=== PATIENT | female | born 1960 | race Caucasian/White ===

== ENCOUNTER 2019-03-26 20:20 | Inpatient (IN) | payer OTHER ==
[2019-03-26 21:12] VITALS: BMI 28.3
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
[2019-03-26] MEDS ORDERED: METHADONE HCL 10 MG TABLET (FOR DETOX USE ONLY) PO ONE (22:11)
[2019-03-26] MEDS ORDERED: cloNIDine HCL 0.1 MG TABLET PO PRN (22:11)
[2019-03-26] MEDS ORDERED: NALOXONE HCL 0.4 MG/ML VIAL IM PRN (22:11)
[2019-03-26] MEDS ORDERED: MAGNESIUM HYDROX 2400MG/30ML ORAL SUSPENSION 30 ML CUP PO PRN (22:22)
[2019-03-26] MEDS ORDERED: guaiFENesin 200 MG/10 ML 10 ML UNIT-DOSE CUPS PO PRN (22:22)
[2019-03-26] MEDS ORDERED: ONDANSETRON *ODT* 4 MG TABLET SL PRN (22:22)
[2019-03-26] MEDS ORDERED: ACETAMINOPHEN 325 MG TABLET (FP) PO PRN ×2 (22:22)
[2019-03-26] MEDS ORDERED: BISMUTH SUBSALICYLATE 524 MG/30 ML UD PO PRN (22:22)
[2019-03-26] MEDS ORDERED: MENTHOL/PHENOL 1 EACH UD MM PRN (22:22)
[2019-03-26] MEDS ORDERED: P-EPHED 60MG/TRIPROLIDI 2.5MG TABLET PO PRN (22:22)
[2019-03-26] MEDS ORDERED: MAGNESIUM CITRATE 300 ML BOTTLE PO PRN (22:22)
[2019-03-26] MEDS ORDERED: DICYCLOMINE HCL 10 MG CAPSULE PO PRN (22:22)
[2019-03-26] MEDS: MELATONIN 5 MG TABLETS PO PRN (23:20)
[2019-03-26] MEDS: hydrOXYzine PAMOATE 25 MG CAPSULE (FP) PO PRN (23:20)
[2019-03-27] MEDS: MELATONIN 5 MG TABLETS PO PRN ×2 (00:41→22:03)
[2019-03-27] MEDS: IBUPROFEN 400 MG TABLET (FP) PO PRN (00:41)
[2019-03-27] MEDS ORDERED: GABAPENTIN 300 MG CAPSULE (FP) PO SCH (06:00)
[2019-03-27] MEDS ORDERED: METHADONE HCL 5 MG TABLET (FOR DETOX USE ONLY) PO ONE (10:00)
[2019-03-27] MEDS ORDERED: RALTEGRAVIR POTASSIUM 400 MG TAB PO SCH (10:00)
[2019-03-27] MEDS ORDERED: RITONAVIR 100 MG TABLET PO SCH (10:00)
[2019-03-27] MEDS: ALBUTEROL SO4 8 GM HFA INHALER IH PRN ×2 (10:26→15:58)
[2019-03-27] MEDS: ASPIRIN 81 MG CHEWABLE TABLETS PO SCH (10:26)
[2019-03-27] MEDS: PRENATAL VITAMINS W/ FOLIC ACID TABLET (FP) PO SCH (10:27)
[2019-03-27 10:34] LABS: HEMATOCRIT 27.1 % (32.4-45.2); HEMOGLOBIN 8.1 GM/dL (10.7-15.3); MCH 21.9 pg (25.7-33.7); MEAN CELL VOLUME 73.1 fl (80-96); MEAN PLT VOLUME 8.7 fl (7.5-11.1); PLATELET COUNT 295 K/MM3 (134-434); RBC 3.71 M/mm3 (3.60-5.2); RDW 19.1 % (11.6-15.6); WHITE BLOOD COUNT 6.8 K/mm3 (4.0-10.0)
[2019-03-27] MEDS: MAG HYDROX/AL HYDROX/SIMETH 30 ML UNIT-DOSE CUP PO PRN ×2 (10:38→15:58)
[2019-03-27 10:44] LABS: ALBUMIN 3.3 g/dl (3.4-5.0); BILIRUBIN,TOTAL 0.2 mg/dL (0.2-1); CREATININE 1.1 mg/dL (0.55-1.3); POTASSIUM 3.5 mmol/L (3.5-5.1); TOT PROT 6.9 g/dl (6.4-8.2)
--- NOTE | 2019-03-27 11:51 | PN ---
BHS COWS - Scale Resting Pulse: 1= [place] 81-100 Sweatin= Chills/Flushing Restless Observation: 1= Difficult to Sit Still Pupil Size: 0= Normal to Room Light Bone or Joint Aches: 1= Mild Discomfort Runny Nose/ Eye Tearin= Nasal Congestion GI Upset > 30mins: 1= Stomach Cramp Tremor Observation of Outstretched Hands: 1= Tremor [place], Not Seen Yawning Observation: 1= 1-2x During Session Anxiety or Irritability: 0= None BHS Progress Note (SOAP) Subjective: Pt admitted yesterday for heroin detox. d/w pt MAT- to have further discussions with counselors. Pt would like something for sleep. Does not want neurotin- says this was stopped by PCP O: Vital Signs - 24 hr 03/26/19 03/26/19 03/27/19 20:57 23:49 03:37 Temperature 98.6 F 96.7 F L Pulse Rate 69 63 Respiratory 20 18 18 Rate Blood Pressure 130/72 142/64 03/27/19 03/27/19 06:43 09:15 Temperature 97.9 F 98.8 F Pulse Rate 57 L 58 L Respiratory 18 18 Rate Blood Pressure 103/60 107/63 Laboratory Tests 03/26/19 03/27/19 03/27/19 21:52 08:00 08:00 WBC 6.8 RBC 3.71 Hgb 8.1 L Hct 27.1 L MCV 73.1 L MCH 21.9 L MCHC 30.0 L RDW 19.1 H Plt Count 295 MPV 8.7 Sodium 144 Potassium 3.5 Chloride 107 Carbon Dioxide 29 Anion Gap 7 L BUN 15.0 Creatinine 1.1 Est GFR (CKD-EPI)AfAm 63.64 Est GFR (CKD-EPI)NonAf 54.91 Random Glucose 80 Calcium 9.0 Total Bilirubin 0.2 AST 41 H ALT 24 Alkaline Phosphatase 82 Total Protein 6.9 Albumin 3.3 L POC Urine HCG, Qual Negative anemia: low MCV and high RDW low GFR Low albumin a/p: continue detox will give iron tabs and B12 and needs f/u PCP MH consult in place for pt
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
[2019-03-27 12:35] LABS: EPI CELLS 4.4 /HPF (0-5/HPF); HYALINE CASTS 16 /lpf (0-8); PH,URINE 6.5 (5.0-8.0); URINE APPEARANCE CLOUDY; URINE BACTERIA 2.7 /hpf (NEGATIVE); URINE BILIRUBIN NEGATIVE (NEGATIVE); URINE COLOR YELLOW; URINE GLUCOSE (UA) NEGATIVE (NEGATIVE); URINE KETONE NEGATIVE (NEGATIVE); URINE LEUK ESTERASE NEGATIVE (NEGATIVE); URINE NITRITE NEGATIVE (NEGATIVE); URINE PROTEIN 2+ (NEGATIVE); URINE RBC 4 /hpf (0-4); URINE WBC 2 /hpf (0-5)
[2019-03-27 12:56] LABS: URINE CRYSTALS FEW /hpf
[2019-03-27] MEDS ORDERED: METHADONE HCL 10 MG TABLET (FOR DETOX USE ONLY) PO ONE (13:00)
[2019-03-27] MEDS: CYANOCOBALAMIN 1,000 MCG TABLET (FP) PO SCH (14:03)
[2019-03-27] MEDS: FERROUS SO4 325 MG TABLET (FP) PO SCH (16:46)
[2019-03-27] MEDS: ATORVASTATIN CA 10 MG TABLET (FP) PO SCH (22:01)
[2019-03-27] MEDS: THIAMINE HCL 100 MG TABLET (FP) PO SCH (22:01)
[2019-03-27] MEDS: METHOCARBAMOL 500 MG TABLET PO PRN (22:22)
[2019-03-28] MEDS: FERROUS SO4 325 MG TABLET (FP) PO SCH ×2 (07:28→18:21)
[2019-03-28] MEDS: IBUPROFEN 400 MG TABLET (FP) PO PRN (08:38)
[2019-03-28] MEDS ORDERED: METHADONE HCL 10 MG TABLET (FOR DETOX USE ONLY) PO ONE (10:00)
[2019-03-28] MEDS: PRENATAL VITAMINS W/ FOLIC ACID TABLET (FP) PO SCH (10:12)
[2019-03-28] MEDS: ASPIRIN 81 MG CHEWABLE TABLETS PO SCH (10:12)
[2019-03-28] MEDS: ALBUTEROL SO4 8 GM HFA INHALER IH PRN ×2 (10:12→22:36)
[2019-03-28] MEDS: CITALOPRAM HYDROBROMIDE 20 MG TABLET (FP) PO SCH (10:13)
[2019-03-28] MEDS: CYANOCOBALAMIN 1,000 MCG TABLET (FP) PO SCH (10:13)
[2019-03-28] MEDS: METHOCARBAMOL 500 MG TABLET PO PRN (10:13)
--- NOTE | 2019-03-28 12:39 | PN ---
BHS COWS - Scale Resting Pulse: 0= [place] 80 or Below Sweatin= Beads of Sweat on Face Restless Observation: 1= Difficult to Sit Still Pupil Size: 0= Normal to Room Light Bone or Joint Aches: 2= Severe Diffuse Aches Runny Nose/ Eye Tearin= None GI Upset > 30mins: 0= None Tremor Observation of Outstretched Hands: 0= None Yawning Observation: 1= 1-2x During Session Anxiety or Irritability: 2=Irritable/Anxious Goose Flesh Skin: 0=Smooth Skin COWS Score: 9 S Progress Note (SOAP) Subjective: c/o sweats, anxiety, and headache. Objective: 03/28/19 12:38 Vital Signs 03/28/19 03/28/19 06:45 09:29 Temperature 99.2 F 99.8 F H Pulse Rate 71 67 Respiratory 18 16 Rate Blood Pressure 135/69 115/56 L Laboratory Last Values WBC 6.8 K/mm3 (4.0-10.0) 03/27/19 08:00 RBC 3.71 M/mm3 (3.60-5.2) 03/27/19 08:00 Hgb 8.1 GM/dL (10.7-15.3) L 03/27/19 08:00 Hct 27.1 % (32.4-45.2) L 03/27/19 08:00 MCV 73.1 fl (80-96) L 03/27/19 08:00 MCH 21.9 pg (25.7-33.7) L 03/27/19 08:00 MCHC 30.0 g/dl (32.0-36.0) L 03/27/19 08:00 RDW 19.1 % (11.6-15.6) H 03/27/19 08:00 Plt Count 295 K/MM3 (134-434) 03/27/19 08:00 MPV 8.7 fl (7.5-11.1) 03/27/19 08:00 Sodium 144 mmol/L (136-145) 03/27/19 08:00 Potassium 3.5 mmol/L (3.5-5.1) 03/27/19 08:00 Chloride 107 mmol/L (98-107) 03/27/19 08:00 Carbon Dioxide 29 mmol/L (21-32) 03/27/19 08:00 Anion Gap 7 MMOL/L (8-16) L 03/27/19 08:00 BUN 15.0 mg/dL (7-18) 03/27/19 08:00 Creatinine 1.1 mg/dL (0.55-1.3) 03/27/19 08:00 Est GFR (CKD-EPI)AfAm 63.64 03/27/19 08:00 Est GFR (CKD-EPI)NonAf 54.91 03/27/19 08:00 Random Glucose 80 mg/dL (74-106) 03/27/19 08:00 Calcium 9.0 mg/dL (8.5-10.1) 03/27/19 08:00 Total Bilirubin 0.2 mg/dL (0.2-1) 03/27/19 08:00 AST 41 U/L (15-37) H 03/27/19 08:00 ALT 24 U/L (13-61) 03/27/19 08:00 Alkaline Phosphatase 82 U/L (45-117) 03/27/19 08:00 Total Protein 6.9 g/dl (6.4-8.2) 03/27/19 08:00 Albumin 3.3 g/dl (3.4-5.0) L 03/27/19 08:00 Urine Color Yellow 03/27/19 10:20 Urine Appearance Cloudy 03/27/19 10:20 Urine pH 6.5 (5.0-8.0) 03/27/19 10:20 Ur Specific [place] 1.029 (1.010-1.035) 03/27/19 10:20 Urine Protein 2+ (NEGATIVE) H 03/27/19 10:20 Urine Glucose (UA) Negative (NEGATIVE) 03/27/19 10:20 Urine Ketones Negative (NEGATIVE) 03/27/19 10:20 Urine Blood Negative (NEGATIVE) 03/27/19 10:20 Urine Nitrite Negative (NEGATIVE) 03/27/19 10:20 Urine Bilirubin Negative (NEGATIVE) 03/27/19 10:20 Urine Urobilinogen 1.0 mg/dL (0.2-1.0) 03/27/19 10:20 Ur Leukocyte Esterase Negative (NEGATIVE) 03/27/19 10:20 Urine WBC (Auto) 2 /hpf (0-5) 03/27/19 10:20 Urine RBC (Auto) 4 /hpf (0-4) 03/27/19 10:20 Urine Casts (Auto) 16 /lpf (0-8) 03/27/19 10:20 U Epithel Cells (Auto) 4.4 /HPF (0-5/HPF) 03/27/19 10:20 Urine Crystals (Auto) Few /hpf 03/27/19 10:20 Urine Bacteria (Auto) 2.7 /hpf (NEGATIVE) 03/27/19 10:20 POC Urine HCG, Qual Negative 03/26/19 21:52 RPR Titer Nonreactive (NONREACTIVE) 03/27/19 08:00 Labs noted. Assessment: 03/28/19 12:38 AOX3, in no respiratory distress. Full ROM, ambulating in the unit. Withdrawal symptoms. Plan: continue detox.
--- NOTE | 2019-03-28 14:37 | EKG ---
Test Reason : Blood Pressure : / mmHG Vent. Rate : 066 BPM Atrial Rate : 066 BPM P-R Int : 138 ms QRS Dur : 076 ms QT Int : 444 ms P-R-T Axes : 000 049 055 degrees QTc Int : 465 ms ECTOPIC ATRIAL RHYTHM ABNORMAL ECG NO PREVIOUS ECGS AVAILABLE Confirmed by CHELSEA ZAPIEN MD ([id number]) on 03/28/2019 2:37:23 PM Referred By: Confirmed By:CHELSEA ZAPIEN MD
[2019-03-28] MEDS: MAG HYDROX/AL HYDROX/SIMETH 30 ML UNIT-DOSE CUP PO PRN (16:58)
[2019-03-28] MEDS: THIAMINE HCL 100 MG TABLET (FP) PO SCH (22:36)
[2019-03-28] MEDS: ATORVASTATIN CA 10 MG TABLET (FP) PO SCH (22:36)
[2019-03-28] MEDS: MELATONIN 5 MG TABLETS PO PRN (22:36)
[2019-03-29] MEDS: FERROUS SO4 325 MG TABLET (FP) PO SCH ×2 (07:28→18:07)
[2019-03-29] MEDS ORDERED: METHADONE HCL 5 MG TABLET (FOR DETOX USE ONLY) PO SCH (10:00)
[2019-03-29] MEDS: ASPIRIN 81 MG CHEWABLE TABLETS PO SCH (10:52)
[2019-03-29] MEDS: CYANOCOBALAMIN 1,000 MCG TABLET (FP) PO SCH (10:53)
[2019-03-29] MEDS: IBUPROFEN 400 MG TABLET (FP) PO PRN ×2 (10:53→22:13)
[2019-03-29] MEDS: CITALOPRAM HYDROBROMIDE 20 MG TABLET (FP) PO SCH (10:53)
[2019-03-29] MEDS: PRENATAL VITAMINS W/ FOLIC ACID TABLET (FP) PO SCH (10:53)
[2019-03-29] MEDS: ALBUTEROL SO4 8 GM HFA INHALER IH PRN ×2 (10:54→22:12)
--- NOTE | 2019-03-29 13:15 | PN ---
BHS COWS - Scale Resting Pulse: 0= [place] 80 or Below Sweatin= Chills/Flushing Restless Observation: 0= Sits Still Pupil Size: 1= Pupils >than Normal Bone or Joint Aches: 1= Mild Discomfort Runny Nose/ Eye Tearin= None GI Upset > 30mins: 1= Stomach Cramp Tremor Observation of Outstretched Hands: 1= Tremor [place], Not Seen Yawning Observation: 0= None Anxiety or Irritability: 1=Feels Anxious/Irritable Goose Flesh Skin: 0=Smooth Skin COWS Score: 6 BHS Progress Note (SOAP) Subjective: 58 years old female admitted on 03/26/19 for opiate withdrawal sx management treating with methadone detox regimen ambulating with walker on hallway steady gait c/o trouble sleep through the night belsomra 5 mg po x 1 Objective: 03/29/19 13:18 Vital Signs Temperature 98.7 F 03/29/19 09:15 Pulse Rate 71 03/29/19 09:15 Respiratory Rate 16 03/29/19 09:15 Blood Pressure 155/71 03/29/19 09:15 O2 Sat by Pulse Oximetry (%) Laboratory Last Values WBC 6.8 K/mm3 (4.0-10.0) 03/27/19 08:00 RBC 3.71 M/mm3 (3.60-5.2) 03/27/19 08:00 Hgb 8.1 GM/dL (10.7-15.3) L 03/27/19 08:00 Hct 27.1 % (32.4-45.2) L 03/27/19 08:00 MCV 73.1 fl (80-96) L 03/27/19 08:00 MCH 21.9 pg (25.7-33.7) L 03/27/19 08:00 MCHC 30.0 g/dl (32.0-36.0) L 03/27/19 08:00 RDW 19.1 % (11.6-15.6) H 03/27/19 08:00 Plt Count 295 K/MM3 (134-434) 03/27/19 08:00 MPV 8.7 fl (7.5-11.1) 03/27/19 08:00 Sodium 144 mmol/L (136-145) 03/27/19 08:00 Potassium 3.5 mmol/L (3.5-5.1) 03/27/19 08:00 Chloride 107 mmol/L (98-107) 03/27/19 08:00 Carbon Dioxide 29 mmol/L (21-32) 03/27/19 08:00 Anion Gap 7 MMOL/L (8-16) L 03/27/19 08:00 BUN 15.0 mg/dL (7-18) 03/27/19 08:00 Creatinine 1.1 mg/dL (0.55-1.3) 03/27/19 08:00 Est GFR (CKD-EPI)AfAm 63.64 03/27/19 08:00 Est GFR (CKD-EPI)NonAf 54.91 03/27/19 08:00 Random Glucose 80 mg/dL (74-106) 03/27/19 08:00 Calcium 9.0 mg/dL (8.5-10.1) 03/27/19 08:00 Total Bilirubin 0.2 mg/dL (0.2-1) 03/27/19 08:00 AST 41 U/L (15-37) H 03/27/19 08:00 ALT 24 U/L (13-61) 03/27/19 08:00 Alkaline Phosphatase 82 U/L (45-117) 03/27/19 08:00 Total Protein 6.9 g/dl (6.4-8.2) 03/27/19 08:00 Albumin 3.3 g/dl (3.4-5.0) L 03/27/19 08:00 Urine Color Yellow 03/27/19 10:20 Urine Appearance Cloudy 03/27/19 10:20 Urine pH 6.5 (5.0-8.0) 03/27/19 10:20 Ur Specific [place] 1.029 (1.010-1.035) 03/27/19 10:20 Urine Protein 2+ (NEGATIVE) H 03/27/19 10:20 Urine Glucose (UA) Negative (NEGATIVE) 03/27/19 10:20 Urine Ketones Negative (NEGATIVE) 03/27/19 10:20 Urine Blood Negative (NEGATIVE) 03/27/19 10:20 Urine Nitrite Negative (NEGATIVE) 03/27/19 10:20 Urine Bilirubin Negative (NEGATIVE) 03/27/19 10:20 Urine Urobilinogen 1.0 mg/dL (0.2-1.0) 03/27/19 10:20 Ur Leukocyte Esterase Negative (NEGATIVE) 03/27/19 10:20 Urine WBC (Auto) 2 /hpf (0-5) 03/27/19 10:20 Urine RBC (Auto) 4 /hpf (0-4) 03/27/19 10:20 Urine Casts (Auto) 16 /lpf (0-8) 03/27/19 10:20 U Epithel Cells (Auto) 4.4 /HPF (0-5/HPF) 03/27/19 10:20 Urine Crystals (Auto) Few /hpf 03/27/19 10:20 Urine Bacteria (Auto) 2.7 /hpf (NEGATIVE) 03/27/19 10:20 POC Urine HCG, Qual Negative 03/26/19 21:52 RPR Titer Nonreactive (NONREACTIVE) 03/27/19 08:00 lab noted 03/29/19 13:19 long history of hypertension treated with low salt diet begin low salt diet and amlodipine 10 mg po daily 03/29/19 13:20 Assessment: 03/29/19 13:18 opiate withdrawal sx Plan: methadone regimen discuss medication assisted treatment program cone picker narcan from pharmacy
[2019-03-29] MEDS: amLODIPine BESYLATE 10 MG TABLET (FP) PO SCH (13:54)
[2019-03-29] MEDS: MAG HYDROX/AL HYDROX/SIMETH 30 ML UNIT-DOSE CUP PO PRN (18:08)
[2019-03-29] MEDS ORDERED: SUVOREXANT 5 MG TABLET PO ONE (22:00)
[2019-03-29] MEDS: THIAMINE HCL 100 MG TABLET (FP) PO SCH (22:10)
[2019-03-29] MEDS: ATORVASTATIN CA 10 MG TABLET (FP) PO SCH (22:11)
[2019-03-30] MEDS: ALBUTEROL SO4 8 GM HFA INHALER IH PRN ×4 (05:59→22:40)
[2019-03-30] MEDS: IBUPROFEN 400 MG TABLET (FP) PO PRN ×2 (07:17→13:26)
[2019-03-30] MEDS: METHOCARBAMOL 500 MG TABLET PO PRN ×2 (07:17→13:26)
[2019-03-30] MEDS: FERROUS SO4 325 MG TABLET (FP) PO SCH ×2 (07:24→17:40)
[2019-03-30] MEDS: PRENATAL VITAMINS W/ FOLIC ACID TABLET (FP) PO SCH (09:14)
[2019-03-30] MEDS: CITALOPRAM HYDROBROMIDE 20 MG TABLET (FP) PO SCH (09:14)
[2019-03-30] MEDS: ASPIRIN 81 MG CHEWABLE TABLETS PO SCH (09:14)
[2019-03-30] MEDS: amLODIPine BESYLATE 10 MG TABLET (FP) PO SCH (09:14)
[2019-03-30] MEDS: CYANOCOBALAMIN 1,000 MCG TABLET (FP) PO SCH (09:14)
[2019-03-30] MEDS ORDERED: METHADONE HCL 10 MG TABLET (FOR DETOX USE ONLY) PO ONE (10:00)
[2019-03-30] MEDS ORDERED: COLLOIDAL OATMEAL 1 BAR EACH TP PRN (13:14)
--- NOTE | 2019-03-30 13:23 | PN ---
BHS COWS - Scale Resting Pulse: 0= [place] 80 or Below Sweatin= No chills or Flushing Restless Observation: 0= Sits Still Pupil Size: 0= Normal to Room Light Bone or Joint Aches: 1= Mild Discomfort Runny Nose/ Eye Tearin= None GI Upset > 30mins: 0= None Tremor Observation of Outstretched Hands: 0= None Yawning Observation: 0= None Anxiety or Irritability: 1=Feels Anxious/Irritable Goose Flesh Skin: 0=Smooth Skin COWS Score: 2 BHS Progress Note (SOAP) Subjective: 58 years old female admitted on 03/26/19 for opiate withdrawal sx mangement treating with methadone detox regimen ambulating with walker steady gait feeling better today requests soap for shower slept through the night more energy social with peers in day room Objective: 03/30/19 13:20 Vital Signs Temperature 98.3 F 03/30/19 09:31 Pulse Rate 61 03/30/19 09:31 Respiratory Rate 18 03/30/19 09:31 Blood Pressure 146/77 03/30/19 09:31 O2 Sat by Pulse Oximetry (%) Laboratory Last Values WBC 6.8 K/mm3 (4.0-10.0) 03/27/19 08:00 RBC 3.71 M/mm3 (3.60-5.2) 03/27/19 08:00 Hgb 8.1 GM/dL (10.7-15.3) L 03/27/19 08:00 Hct 27.1 % (32.4-45.2) L 03/27/19 08:00 MCV 73.1 fl (80-96) L 03/27/19 08:00 MCH 21.9 pg (25.7-33.7) L 03/27/19 08:00 MCHC 30.0 g/dl (32.0-36.0) L 03/27/19 08:00 RDW 19.1 % (11.6-15.6) H 03/27/19 08:00 Plt Count 295 K/MM3 (134-434) 03/27/19 08:00 MPV 8.7 fl (7.5-11.1) 03/27/19 08:00 Sodium 144 mmol/L (136-145) 03/27/19 08:00 Potassium 3.5 mmol/L (3.5-5.1) 03/27/19 08:00 Chloride 107 mmol/L (98-107) 03/27/19 08:00 Carbon Dioxide 29 mmol/L (21-32) 03/27/19 08:00 Anion Gap 7 MMOL/L (8-16) L 03/27/19 08:00 BUN 15.0 mg/dL (7-18) 03/27/19 08:00 Creatinine 1.1 mg/dL (0.55-1.3) 03/27/19 08:00 Est GFR (CKD-EPI)AfAm 63.64 03/27/19 08:00 Est GFR (CKD-EPI)NonAf 54.91 03/27/19 08:00 Random Glucose 80 mg/dL (74-106) 03/27/19 08:00 Calcium 9.0 mg/dL (8.5-10.1) 03/27/19 08:00 Total Bilirubin 0.2 mg/dL (0.2-1) 03/27/19 08:00 AST 41 U/L (15-37) H 03/27/19 08:00 ALT 24 U/L (13-61) 03/27/19 08:00 Alkaline Phosphatase 82 U/L (45-117) 03/27/19 08:00 Total Protein 6.9 g/dl (6.4-8.2) 03/27/19 08:00 Albumin 3.3 g/dl (3.4-5.0) L 03/27/19 08:00 Urine Color Yellow 03/27/19 10:20 Urine Appearance Cloudy 03/27/19 10:20 Urine pH 6.5 (5.0-8.0) 03/27/19 10:20 Ur Specific [place] 1.029 (1.010-1.035) 03/27/19 10:20 Urine Protein 2+ (NEGATIVE) H 03/27/19 10:20 Urine Glucose (UA) Negative (NEGATIVE) 03/27/19 10:20 Urine Ketones Negative (NEGATIVE) 03/27/19 10:20 Urine Blood Negative (NEGATIVE) 03/27/19 10:20 Urine Nitrite Negative (NEGATIVE) 03/27/19 10:20 Urine Bilirubin Negative (NEGATIVE) 03/27/19 10:20 Urine Urobilinogen 1.0 mg/dL (0.2-1.0) 03/27/19 10:20 Ur Leukocyte Esterase Negative (NEGATIVE) 03/27/19 10:20 Urine WBC (Auto) 2 /hpf (0-5) 03/27/19 10:20 Urine RBC (Auto) 4 /hpf (0-4) 03/27/19 10:20 Urine Casts (Auto) 16 /lpf (0-8) 03/27/19 10:20 U Epithel Cells (Auto) 4.4 /HPF (0-5/HPF) 03/27/19 10:20 Urine Crystals (Auto) Few /hpf 03/27/19 10:20 Urine Bacteria (Auto) 2.7 /hpf (NEGATIVE) 03/27/19 10:20 POC Urine HCG, Qual Negative 03/26/19 21:52 RPR Titer Nonreactive (NONREACTIVE) 03/27/19 08:00 lab noted one isolated incident of bp elevation today continue amlodipine patient will return to primary ID provider for follow up care 03/30/19 13:23 Assessment: 03/30/19 13:22 opiate withdrawal Plan: methadone regimen
[2019-03-30] MEDS: MELATONIN 5 MG TABLETS PO PRN (22:38)
[2019-03-30] MEDS: ATORVASTATIN CA 10 MG TABLET (FP) PO SCH (22:39)
[2019-03-30] MEDS: THIAMINE HCL 100 MG TABLET (FP) PO SCH (22:40)
[2019-03-31] MEDS: hydrOXYzine PAMOATE 25 MG CAPSULE (FP) PO PRN (01:11)
[2019-03-31] MEDS ORDERED: METHADONE HCL 5 MG TABLET (FOR DETOX USE ONLY) PO ONE (06:00)
[2019-03-31] MEDS: FERROUS SO4 325 MG TABLET (FP) PO SCH (07:24)
[2019-03-31] MEDS: ASPIRIN 81 MG CHEWABLE TABLETS PO SCH (10:39)
[2019-03-31] MEDS: amLODIPine BESYLATE 10 MG TABLET (FP) PO SCH (10:39)
[2019-03-31] MEDS: PRENATAL VITAMINS W/ FOLIC ACID TABLET (FP) PO SCH (10:39)
[2019-03-31] MEDS: ALBUTEROL SO4 8 GM HFA INHALER IH PRN (10:39)
[2019-03-31] MEDS: CITALOPRAM HYDROBROMIDE 20 MG TABLET (FP) PO SCH (10:39)
--- NOTE | 2019-03-31 10:51 | DS ---
[facility] Detox Discharge Summary Admission Date: 03/26/19 Discharge Date: 03/31/19 - History Present History: Opioid Dependence Additional Comments: 58 years old female admitted on 03/26/19 for opiate withdrawal sx management treating with methadone detox regimen patient tolerated well alert oriented x 3 forgetful but resume memory with information respiratory clear lung bilaterally on auscultation extremities ambulating with walker steady gait skin warm and dry - Physical Exam Results Vital Signs: Vital Signs Temperature 98.2 F 03/31/19 06:22 Pulse Rate 81 03/31/19 06:22 Respiratory Rate 18 03/31/19 06:22 Blood Pressure 105/57 L 03/31/19 06:22 O2 Sat by Pulse Oximetry (%) Pertinent Admission Physical Exam Findings: opiate withdrawal - Treatment Hospital Course: Detox Protocol Followed, Detoxed Safely, Responded well, Discharged Condition Good, Rehab Referral Accepted Patient has Accepted a Rehab Referral to: [facility] - Medication Discharge Medications: Ambulatory Orders Albuterol Sulfate Inhaler - [Ventolin HFA Inhaler -] 1 - 2 inh PO Q4H 03/26/19 Aspirin 81 mg PO DAILY 03/26/19 Atorvastatin Ca [Lipitor] 10 mg PO HS 03/26/19 Bisacodyl [Correctol] 5 mg PO PRN MDD UP TO 2 DAYS 03/26/19 Calcium Carbonate Suspension - [Calcium Carb Oral Suspension -] 500 mg PO DAILY MDD UP TO 10 DAYS 03/26/19 Calcium Carbonate/Vitamin D3 [Calcium 500-Vit D3 400 Tablet] 1 each PO BID 03/26 Citalopram Hydrobromide [Citalopram HBr] 40 mg PO DAILY 03/26/19 Desonide [Desonate] 60 gm TP BID 03/26/19 Diclofenac/Lido/Me-Cory/Camphor [Diclovix Kit] 1 each TP BID 03/26/19 Gabapentin 300 mg PO TID 03/26/19 Mag Hydrox/Al Hydrox/Simeth [MAALOX *SUSPENSION* -] 30 ml PO Q6H 03/26/19 Oxybutynin Chloride [Oxybutynin Chloride ER] 15 mg PO DAILY 03/26/19 Oxycodone HCl/Acetaminophen [Percocet 5-325 mg Tablet] 1 tab PO PRN 03/26/19 Raltegravir Potassium [Isentress] 400 mg PO DAILY 03/26/19 Ritonavir 100 mg PO DAILY 03/26/19 Terbinafine HCl [Terbinafine] 15 gm TP BID 03/26/19 Triamcinolone 0.1% Cream [Aristocort 0.1% Cream -] 0 gm TP BID 03/26/19 Naloxone HCl [Narcan] 4 mg NS ASDIR PRN #1 spray 03/29/19 - Diagnosis (1) Hypertension Current Visit: Yes Status: Chronic Qualifiers: Hypertension type: essential hypertension Qualified Code(s): I10 - Essential (primary) hypertension (2) Anemia Current Visit: Yes Status: Chronic Qualifiers: Anemia type: B12 deficiency Vitamin B12 deficiency anemia type: unspecified B12 deficiency Qualified Code(s): D51.9 - Vitamin B12 deficiency anemia, unspecified (3) Asthma Current Visit: Yes Status: Chronic Qualifiers: Asthma severity: mild Asthma persistence: intermittent Asthma complication type: with status asthmaticus Qualified Code(s): J45.22 - Mild intermittent asthma with status asthmaticus (4) Dependent on walker for ambulation Current Visit: Yes Status: Chronic (5) HIV (human immunodeficiency virus infection) Current Visit: Yes Status: Chronic Qualifiers: HIV symptom status: asymptomatic Qualified Code(s): Z21 - Asymptomatic human immunodeficiency virus [HIV] infection status (6) Opioid dependence with withdrawal Current Visit: Yes Status: Acute (7) Substance induced mood disorder Current Visit: Yes Status: Suspected - AMA Did Patient Leave Against Medical Advice: No COWS (PN) - Opiate Withdrawal Resting Pulse: 1= OR 81-100 Sweatin= No chills or Flushing Restless Observation: 0= Sits Still Pupil Size: 0= Normal to Room Light Bone or Joint Aches: 0= None Runny Nose/ Eye Tearin= None GI Upset > 30mins: 0= None Tremor Observation of Outstretched Hands: 0= None Yawning Observation: 0= None Anxiety or Irritability: 0= None Goose Flesh Skin: 0=Smooth Skin COWS Score: 1
[2019-03-31 11:07] VITALS: BP 122/60; PULSE 72; TEMP 97.2
[2019-03-31] MEDS: CYANOCOBALAMIN 1,000 MCG TABLET (FP) PO SCH (11:13)
== END 2019-03-31 11:12 | disposition other institution (70) | DRG 773 ==
LOC: YASAS 20:20 → Y3N 21:58
PROVIDERS: ADMIT Allergy & Immunology; ATTEND Allergy & Immunology
PROC: HZ2ZZZZ Detoxification Services for Substance Abuse Treatment (ICD-10-PCS; principal; 2019-03-26)
DX: F11.23 Opioid dependence with withdrawal (principal); F19.24 Other psychoactive substance dependence with psychoactive substance-induced mood disorder; F19.282 Other psychoactive substance dependence with psychoactive substance-induced sleep disorder; I10 Essential (primary) hypertension; D51.9 Vitamin B12 deficiency anemia, unspecified; J45.22 Mild intermittent asthma with status asthmaticus; Z21 Asymptomatic human immunodeficiency virus [HIV] infection status; E78.5 Hyperlipidemia, unspecified; R77.0 Abnormality of albumin; D64.9 Anemia, unspecified; R01.1 Cardiac murmur, unspecified; R26.2 Difficulty in walking, not elsewhere classified; Z99.89 Dependence on other enabling machines and devices; Z88.0 Allergy status to penicillin; Z91.5 Personal history of self-harm
CPT/HCPCS: 36415; 80053; 81003; 81025; 85027; 86593; 93005; 93010; J0735

== ENCOUNTER 2019-03-31 11:18 | Inpatient (IN) | payer OTHER ==
--- NOTE | 2019-03-31 11:00 | HP ---
[facility] Rehab Assess/Revision - Admission History Admitted to Rehab from: [facility] Date of Admission to Rehab: 03/31/19 - Findings Detox History & Physical reviewed: Yes Concur with findings: Yes Comments/Additional Findings: transferred from detox to rehab admission as per protocol Inpatient Rehab Admission - Rehab Decision to Admit Inpatient rehab admission?: Yes - Initial Determination Are CD services needed?: Yes Free of communicable disease: Yes Not in need of hospitalization: Yes - Rehab Admission Criteria Previous failed treatment: Yes Poor recovery environment: Yes Comorbidities: Yes Lacks judgement: Yes Patient is meeting Inpatient Rehab admission criteria:: Yes
[~2019-03-31 11:18] MED LIST: COLLOIDAL OATMEAL 1 BAR EACH TP PRN; LOPERAMIDE HCL 2 MG CAPSULE PO PRN; MAG HYDROX/AL HYDROX/SIMETH 30 ML UNIT-DOSE CUP PO PRN; MAGNESIUM CITRATE 300 ML BOTTLE PO PRN; MENTHOL/PHENOL 1 EACH UD MM PRN; P-EPHED 60MG/TRIPROLIDI 2.5MG TABLET PO PRN; guaiFENesin 200 MG/10 ML 10 ML UNIT-DOSE CUPS PO PRN
--- NOTE | 2019-03-31 13:52 | PN ---
[facility] Progress Note Note: This is patient's first admission to [facility]. Completed detox and transferred to rehab. Seen by psychiatric service, no previous hx of HI, however she did self-mutilate many years ago. Now c/o insomnia, she was on Belsomra in detox; will continue in rehab. Problem list, home medications, labs reviewed. Labs indicate anemia; HIV medications are not a standard regimen. Will discuss with the patient and attempt to contact the pharmacy. Vital Signs Period Temp Pulse Resp BP Sys/Beebe Pulse Ox Last 24 Hr 98.1 F 73 16 129/80
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
[2019-03-31] MEDS: FERROUS SO4 325 MG TABLET (FP) PO SCH (17:33)
[2019-03-31] MEDS: MELATONIN 5 MG TABLETS PO PRN (21:13)
[2019-03-31] MEDS: THIAMINE HCL 100 MG TABLET (FP) PO SCH (21:13)
[2019-03-31] MEDS: SUVOREXANT 5 MG TABLET PO PRN (21:16)
[2019-03-31] MEDS: ATORVASTATIN CA 10 MG TABLET (FP) PO SCH (21:17)
[2019-03-31] MEDS: ALBUTEROL SO4 8 GM HFA INHALER IH PRN (21:18)
[2019-04-01] MEDS: FERROUS SO4 325 MG TABLET (FP) PO SCH ×2 (07:57→17:39)
[2019-04-01] MEDS: CITALOPRAM HYDROBROMIDE 20 MG TABLET (FP) PO SCH (09:23)
[2019-04-01] MEDS: ASPIRIN 81 MG CHEWABLE TABLETS PO SCH (09:23)
[2019-04-01] MEDS: PRENATAL VITAMINS W/ FOLIC ACID TABLET (FP) PO SCH (09:23)
[2019-04-01] MEDS: ACETAMINOPHEN 325 MG TABLET (FP) PO PRN ×3 (09:25→22:42)
[2019-04-01] MEDS: ALBUTEROL SO4 8 GM HFA INHALER IH PRN ×3 (09:27→21:11)
[2019-04-01] MEDS: MAGNESIUM HYDROX 2400MG/30ML ORAL SUSPENSION 30 ML CUP PO PRN ×2 (09:28→17:41)
[2019-04-01] MEDS: THIAMINE HCL 100 MG TABLET (FP) PO SCH (21:09)
[2019-04-01] MEDS: ATORVASTATIN CA 10 MG TABLET (FP) PO SCH (21:09)
[2019-04-01] MEDS: MELATONIN 5 MG TABLETS PO PRN (21:10)
[2019-04-01] MEDS: SUVOREXANT 5 MG TABLET PO PRN (22:41)
[2019-04-02 06:52] VITALS: BP 117/59; PULSE 64; TEMP 98.5
[2019-04-02] MEDS: FERROUS SO4 325 MG TABLET (FP) PO SCH (07:47)
[2019-04-02] MEDS: ASPIRIN 81 MG CHEWABLE TABLETS PO SCH (10:13)
[2019-04-02] MEDS: CITALOPRAM HYDROBROMIDE 20 MG TABLET (FP) PO SCH (10:13)
[2019-04-02] MEDS: PRENATAL VITAMINS W/ FOLIC ACID TABLET (FP) PO SCH (10:13)
[2019-04-02] MEDS: MAGNESIUM HYDROX 2400MG/30ML ORAL SUSPENSION 30 ML CUP PO PRN (10:14)
[2019-04-02] MEDS: ACETAMINOPHEN 325 MG TABLET (FP) PO PRN (10:14)
[2019-04-02] MEDS: ALBUTEROL SO4 8 GM HFA INHALER IH PRN (10:15)
--- NOTE | 2019-04-02 11:58 | DS ---
[facility] Rehab Discharge Summary - [facility] Rehab Discharge Summary Admission Date: 03/31/19 Discharge Date: 04/02/19 - History Present History: Opioid dependence Pertinent Past History: CLIENT IS REFERRED BY [facility] FOR HEROIN use disorder. SHE REPORTS DAILY USE OF HEROIN.HX/O IVDU, SNIFFS NOW. denies hx/o black outs/ seizures.CLIENT REPORTS A Drug free TIME OF 22 YEARS RELAPSING 10 YEARS AGO. DENIES ANY SIGNIFICANT PERIOD OF drug free TIME SINCE. THIS IS HER FIRST TIME SEEKING TXMENT. LIVES ALONE, SSI, DENIES LEGals - Discharge Physical Exam Vital Signs: Vital Signs Temperature 98.5 F 04/02/19 06:51 Pulse Rate 64 04/02/19 06:51 Respiratory Rate 18 04/02/19 06:51 Blood Pressure 117/59 L 04/02/19 06:51 O2 Sat by Pulse Oximetry (%) Pertinent Admission Physical Exam Findings: General Appearance: No apparent distress HEENTM: Normocephalic, Respiratory:Lungs Clear, Neck: Supple, Trachea in good position Cardiology:S1, S2, Murmur Abdominal: +Bowel Sounds, Non Tender, Soft, Musculoskeletal: upper body ROM, ambualtes w/ rolling walker Neurological: CN 2-12 intact - Treatment Discharge Condition: Discharge condition good (Medically stable for discharge; patient refusing aftercare) Hospital Course: Patient attended groups, had 1:1 with her counselor, was adherent to her medication regimen and treatment plan. She was seen by psychiatry. Patient is a poor historian and was unable to recall her HIV regimen. The pharmacy was called and provided information for her last prescription, which was different from her report and not a standard regimen. The plan was to contact her HIV provider to obtain/confirm the regimen, but the patient has decided to leave early. - Medication Discharge Medications: Ambulatory Orders Albuterol Sulfate Inhaler - [Ventolin HFA Inhaler -] 2 inh PO Q4H 03/26/19 Aspirin 81 mg PO DAILY 03/26/19 Atorvastatin Ca [Lipitor] 10 mg PO HS 03/26/19 Citalopram Hydrobromide [Citalopram HBr] 40 mg PO DAILY 03/26/19 Desonide [Desonate] 60 gm TP BID 03/26/19 Diclofenac/Lido/Me-Cory/Camphor [Diclovix Kit] 1 each TP BID 03/26/19 Gabapentin 300 mg PO TID 03/26/19 Mag Hydrox/Al Hydrox/Simeth [MAALOX *SUSPENSION* -] 30 ml PO Q6H 03/26/19 Oxybutynin Chloride [Oxybutynin Chloride ER] 15 mg PO DAILY 03/26/19 Ritonavir 100 mg PO DAILY 03/26/19 Terbinafine HCl [Terbinafine] 15 gm TP BID 03/26/19 Triamcinolone 0.1% Cream [Aristocort 0.1% Cream -] 0 gm TP BID 03/26/19 Naloxone HCl [Narcan] 4 mg NS ASDIR PRN #1 spray 03/29/19 Fosamprenavir Calcium [Lexiva -] 700 mg PO BID #14 tablet 03/31/19 Maraviroc [Selzentry] 300 mg PO DAILY #30 tablet 03/31/19 Raltegravir Potassium [Isentress] 400 mg PO BID #60 tablet 03/31/19 - Medication-Assisted Treatment (MAT) Medication-Assisted Treatment (MAT): No - Discharge Instructions Diet, activity, other medical instructions: Diet: as tolerated Activity: as tolerated Other medical instructions: Please consider attending AA/NA meetings, seeking substance abuse outpatient treatment. - Diagnosis (1) Opioid use disorder Current Visit: Yes Status: Chronic - Follow-up Referral Minutes to complete discharge: 20 - AMA Did Patient Leave Against Medical Advice: No Additional Comments: Early discharge; patient reports that she does not need any prescriptions transmitted to her pharmacy.
[2019-04-02] MEDS ORDERED: GABAPENTIN 300 MG CAPSULE (FP) PO SCH (14:00)
[2019-04-02] MEDS ORDERED: SUVOREXANT 5 MG TABLET PO PRN (22:00)
== END 2019-04-02 14:15 | disposition home or self-care (01) | DRG 772 ==
LOC: YASAS 11:18 → Y3E 11:22
PROVIDERS: ADMIT Neuromusculoskeletal Medicine & OMM; ATTEND Neuromusculoskeletal Medicine & OMM
PROC: HZ42ZZZ Group Counseling for Substance Abuse Treatment, Cognitive-Behavioral (ICD-10-PCS; principal; 2019-03-31)
DX: F11.20 Opioid dependence, uncomplicated (principal); F19.282 Other psychoactive substance dependence with psychoactive substance-induced sleep disorder; J45.22 Mild intermittent asthma with status asthmaticus; Z21 Asymptomatic human immunodeficiency virus [HIV] infection status; E78.5 Hyperlipidemia, unspecified; R29.2 Abnormal reflex; Z99.89 Dependence on other enabling machines and devices; Z88.0 Allergy status to penicillin; Z91.018 Allergy to other foods; Z91.5 Personal history of self-harm
CPT/HCPCS: 36415; 82607